=== PATIENT | female | born 1935 | race Caucasian/White ===

== ENCOUNTER 2017-06-09 21:35 | Emergency (ER) | payer OTHER, BC ==
[2017-06-09 21:43] VITALS: PULSE 87; TEMP 97.8; BMI 32.9
[2017-06-09] MEDS ORDERED: CEPHALEXIN MONOHYDRATE 500 MG CAPSULE (UD) PO ONE (21:56)
[2017-06-09 22:01] VITALS: BP 180/87
[2017-06-09] MEDS ORDERED: CEPHALEXIN MONOHYDRATE 500 MG CAPSULE (UD) ONE (22:01)
--- NOTE | 2017-06-09 22:03 | PDOC ---
History of Present Illness - General Chief Complaint: Bite Stated Complaint: BUG BITES Time Seen by Provider: 06/09/17 21:43 - History of Present Illness Initial Comments: This 81-year-old patient with a history of hypertension but no previous history of wound healing problems or resistant organism colonization presents with a few week history of multiple insect bites of bilateral extremities (presumably mosquito bites according to the patient). Also, in the last few days, she has had redness and swelling in 2 areas of mosquito bites of the right forearm. She is also noted some generalized mild swelling of the forearm with very faint redness of the volar aspect of the right forearm. No fever/chills/muscle aches or rash. No significant pain at rest or with movement of the right arm/hand/ fingers Patient states that she has never needed to use mosquito repellent when she is in her garden but this year she has been bitten numerous times by insects in the garden. Past History - Past Medical History Allergies/Adverse Reactions: Allergies Allergy/AdvReac Type Severity Reaction Status Date / Time No Known Allergies Allergy Verified 06/09/17 21:38 Home Medications: Ambulatory Orders Amlodipine Besylate 5 mg PO DAILY 10/04/15 Cephalexin [Keflex] 500 mg PO TID #15 capsule 06/09/17 Triamcinolone 0.5% Cream [Aristocort 0.5% Cream -] 1 applic TP BID #1 tube 06/09 HTN: Yes - Immunization History Immunization Up to Date: Yes - Psycho/Social/Smoking Cessation Hx Anxiety: No Suicidal Ideation: No Smoking History: Never smoked Have you smoked in the past 12 months: No Information on smoking cessation initiated: No Hx Alcohol Use: Yes (SOCIAL) Drug/Substance Use Hx: No Substance Use Type: None Review of Systems - Review of Systems Able to Perform ROS?: Yes Comments:: 12 point review of systems is negative except for what is noted in the history of present illness *Physical Exam - Vital Signs Last Vital Signs Temp Pulse Resp BP Pulse Ox 97.8 F 87 16 187/107 97 06/09/17 21:39 06/09/17 21:39 06/09/17 21:39 06/09/17 21:39 06/09/17 21:39 - Physical Exam Comments: GENERAL: Elderly female in no acute distress HEAD: Normal with no signs of trauma. EYES: PERRLA, EOMI, sclera anicteric, conjunctiva clear. ENT: Ears normal, nares patent, oropharynx clear without exudates. Dry mucous membranes. NECK: Normal range of motion, supple without lymphadenopathy, JVD, or masses. LUNGS: Breath sounds equal, clear to auscultation bilaterally. No wheezes, and no crackles. HEART:Regular rate and rhythm, normal S1 and S2 without murmur, rub or gallop. ABDOMEN:.normal bowel sounds No guarding,tenderness or rebound.No masses No distention. EXTREMITIES: Right upper extremity2 erythematous, mildly edematous, non- fluctuant, 2 cm diameter lesions distal volar aspect forearm Mildly tender 0.5 cm mass mid forearm, volar aspect (consistent with lymph node enlargement) Very faint erythema from about insect bites to mid volar forearm No lymphangitic streaking Remainder of the extremities show no evidence of cellulitis although scattered small erythematous maculopapular bites present NEUROLOGICAL: Cranial nerves II through XII grossly intact. Normal speech. No focal neurological deficits. MUSCULOSKELETAL: Back non-tender to palpation, no CVA tenderness Progress Note - Progress Note Progress Note: This 81-year-old woman with no history of cellulitis or poor wound healing, presents with 2 areas of erythema and edema that were most likely insect bites that have gotten secondarily bacterially infected (patient states these bites were present a week ago and she has been scratching them continuously). Although there are scattered lesions consistent with insect bites on bilateral upper and lower extremities, no other lesions appear to be infected. Patient will be treated with Keflex 500 mg 3 times a day for 5 days. She will also be given a prescription for triamcinolone cream to be used on the itchy, nonpainful, noninflamed bites on her extremities She is been advised to use some type of insect repellent when she is in her garden She should follow up with her PMD, Dr. Eric within the next 2 days for wound check She should return to the emergency room immediately if she has fever/chills, worsening of the redness/swelling or red streaking up her arm *DC/Admit/Observation/Transfer Diagnosis at time of Disposition: Cellulitis of right forearm, Multiple insect bites - Discharge Dispostion Disposition: HOME Condition at time of disposition: Stable - Prescriptions Prescriptions: Triamcinolone 0.5% Cream [Aristocort 0.5% Cream -] 1 applic TP BID #1 tube Cephalexin [Keflex] 500 mg PO TID #15 capsule - Referrals Referrals: Jessica Eric MD [Staff Physician] - 3 days - Patient Instructions Printed Discharge Instructions: DI for Insect Bites and Stings, DI for Cellulitis -- Adult Additional Instructions: Keflex 500 mg 3 times a day for 5 days Return to ER if right forearm becomes more swollen/red/painful or you develop fever Follow-up with Dr. Eric within 3-4 days Triamcinolone cream 0.5% twice a day to itchy insect bites as needed Use mosquito repellent when outside in garden as discussed
== END 2017-06-09 22:07 | disposition home or self-care (01) ==
LOC: FER 21:35
DX: L03.113 Cellulitis of right upper limb (principal); S50.861A Insect bite (nonvenomous) of right forearm, initial encounter; I10 Essential (primary) hypertension; X58.XXXA Exposure to other specified factors, initial encounter; Y93.9 Activity, unspecified; Y92.9 Unspecified place or not applicable
CPT/HCPCS: 99281-25

== ENCOUNTER 2023-05-09 14:38 | Emergency (ER) | payer OTHER, BC ==
[2023-05-09 14:45] VITALS: BP 153/77; PULSE 71; RESP 16; TEMP 97.7; BMI 29.2
== END 2023-05-09 15:39 | disposition home or self-care (01) ==
LOC: FER 14:38
DX: R21 Rash and other nonspecific skin eruption (principal); L29.9 Pruritus, unspecified; L25.9 Unspecified contact dermatitis, unspecified cause
CPT/HCPCS: 99283-25